=== PATIENT | male | born 1995 | race Asian ===

== ENCOUNTER 2018-05-08 15:10 | Emergency (ER) | payer OTHER ==
[~2018-05-08] VITALS: Ht 180.3 cm; Wt 114.3 kg
--- NOTE | 2018-05-08 15:35 | ED Head Injury ---
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 STATES MAY FEEL "SLIGHTLY FUZZY" STILL. DENIES HEAD, NECK PAIN. Source: patient Exam Limitations: no limitations History of Present Illness Date Seen by Provider: May 08, 2018 Time Seen by Provider: 15:30 Initial Comments To ER with reports of a head injury. He was playing rugby when he collided with another player about 30 minutes prior to arrival. They struck heads. He was hit in his forehead. No loss of consciousness, no headache, no nausea no vomiting no dizziness or vision changes. He states that the area that was involved in his head feels a little "tingly". She denies any anticoagulant use or bleeding diatheses. He said he has had a couple of CT scans before his head for concussion symptoms. He is from [facility]. Occurred: just prior to arrival Severity: moderate Location: frontal Method of Injury: sports injury Loss of Consciousness: no loss of consciousness Associated Systoms: No Headaches, No Nausea/Vomiting Allergies and Home Medications Patient Home Medication List Home Medication List Reviewed: Yes Review of Systems Review of Systems Constitutional: see HPI Eyes: See HPI; Denies Blurred Vision, Denies Photophobia Ears, Nose, Mouth, Throat: no symptoms reported Respiratory: no symptoms reported Cardiovascular: no symptoms reported Genitourinary: no symptoms reported Musculoskeletal: no symptoms reported Skin: no symptoms reported Psychiatric/Neurological: No Symptoms Reported Endocrine: No Symptoms Reported Hematologic/Lymphatic: No Symptoms Reported Past Iwnbbso-Onfrrq-Bfhyyd Hx Patient Social History Alcohol Use: Occasionally Uses Recreational Drug Use: No Smoking Status: Current Everyday Smoker Type Used: Electronic/Vapor Recent Foreign Travel: No Contact w/Someone Who Travel: No Recent Infectious Disease Expo: No Recent Hopitalizations: No Immunizations Up To Date Tetanus Booster (TDap): Less than 5yrs PED Vaccines UTD: Yes Seasonal Allergies Seasonal Allergies: No Past Medical History Surgeries: Yes (RIGHT ACL SX) Orthopedic Respiratory: No Cardiac: No Neurological: No Genitourinary: No Gastrointestinal: No Musculoskeletal: No Endocrine: No HEENT: No Cancer: No Psychosocial: No Blood Disorders: No Physical Exam Vital Signs Vital Signs - First Documented 05/08/18 15:14 Temp 98.6 Pulse 121 Resp 19 B/P (MAP) 117/70 (86) Pulse Ox 95 O2 Delivery Room Air Capillary Refill : Less Than 3 Seconds Height, Weight, BMI Height: 5'11.00" Weight: 252lbs. oz. [id number]; BMI Method:Stated General Appearance: WD/WN, no apparent distress HEENT: PERRL/EOMI, normal ENT inspection, TMs normal Neck: non-tender, full range of motion Cardiovascular: regular rate, rhythm, no murmur Respiratory: normal breath sounds, no respiratory distress, no accessory muscle use Gastrointestinal: normal bowel sounds Extremities: normal range of motion, non-tender Psychiatric: alert, oriented x 3 Crainal Nerves: normal hearing, normal speech, PERRL Skin: normal color, warm/dry Hernán Coma Score Best Eye Response: (4) Open Spontaneously Best Verbal Response: (5) Oriented Best Motor Response: (6) Obeys Commands Hernán Total: 15 Progress/Results/Core Measures Results/Orders Vital Signs/I&O 05/08/18 15:14 Temp 98.6 Pulse 121 Resp 19 B/P (MAP) 117/70 (86) Pulse Ox 95 O2 Delivery Room Air Blood Pressure Mean: 86 Departure Communication (Admissions) There is no scalp hematoma abrasion laceration or depressed skull fracture palpable. He has no anticoagulant use or bleeding diatheses. He had no loss of consciousness, this is a frontal injury, he has no headache dizziness nausea or any symptom. I do not feel a CT is warranted at this time. However, since he is from out of town I did offer a CT if it would give him please of mind but discussed with him the risks of radiation and cost associated with this. He agrees to go home and to follow-up with his doctor or be seen at an emergency room wherever he may be if he develops any symptoms. Impression Primary Impression: Scalp contusion Disposition: 01 HOME, SELF-CARE Condition: Stable Departure-Patient Inst. Decision time for Depature: 15:35 Referrals: NO,LOCAL PHYSICIAN (PCP/Family) Primary Care Physician Patient Instructions: Minor Head Injury Add. Discharge Instructions: 1. Return to ER for any headache, vomiting, confusion, loss of consciousness or other concerns. Follow-up with your doctor next week. All discharge instructions reviewed with patient and/or family. Voiced understanding. TATY AGUAYO [employer] O[employer]ATOR May 08, 2018 15:35
[2018-05-08 15:47] VITALS: BP 117/70
== END 2018-05-08 15:49 | disposition home or self-care (01) ==
LOC: ER 15:11
DX: S09.90XA Unspecified injury of head, initial encounter (principal); S00.83XA Contusion of other part of head, initial encounter; R40.2142 Coma scale, eyes open, spontaneous, at arrival to emergency department; R40.2252 Coma scale, best verbal response, oriented, at arrival to emergency department; R40.2362 Coma scale, best motor response, obeys commands, at arrival to emergency department; F17.210 Nicotine dependence, cigarettes, uncomplicated; W03.XXXA Other fall on same level due to collision with another person, initial encounter; Y93.63 Activity, rugby
CPT/HCPCS: 99282